=== PATIENT | male | born 1980 | race Caucasian/White ===

== ENCOUNTER 2019-01-31 05:36 | Inpatient (IN) | payer OTHER ==
[~2019-01-31] VITALS: Ht 182.9 cm; Wt 78.0 kg
[~2019-01-31 05:36] MED LIST: CARAS PO; DULO30CA45 PO; ESCI20TA PO; HYOS0.1297 PO; OMEP40CA6 PO; PANT40TA4 PO; PROP20TA4 PO; SPIR25TA PO; THIA50TA7 PO
[2019-01-31 08:00] VITALS: BP 122/65; PULSE 74; RESP 16
[2019-01-31 08:06] VITALS: Ht 182.9 cm; Wt 78.0 kg
[2019-01-31] MEDS ORDERED: NACL 0.9% 3 ML SYG IV SCH ×2 (09:30→14:30)
[2019-01-31] MEDS ORDERED: ACETAMINOPHEN 325 MG TAB PO PRN ×3 (09:30→20:30)
[2019-01-31] MEDS ORDERED: LORAZEPAM 2 MG INJ IV PRN ×4 (09:30→15:30)
[2019-01-31] MEDS: ONDANSETRON 4 MG INJ IV PRN ×2 (09:47→16:03)
[2019-01-31 14:00] VITALS: BP 114/68; PULSE 66; RESP 16
--- NOTE | 2019-01-31 14:52 | HP ---
Date/Time of Note Date/Time of Note DATE: 01/31/19 TIME: 14:37 Assessment/Plan VTE Prophylaxis SCD applied (from Nsg): Yes Pharmacological prophylaxis: NA/contraindicated Pharm contraindication: low risk/ambulating Lines/Catheters IV Catheter Type (from Nrsg): Saline Lock Urinary Cath still in place: No Assessment/Plan Hospital Course SUBJECTIVE: Having tremors on right hand. Vomited one time, nauseated. Having mild abdominal pain/discomfort mostly right-sided/lower abdomen. OBJECTIVE: Vital signs-see below PHYSICAL EXAM: Constitutional: Adequately built,not in acute distress. HEENT: Head atraumatic and normocephalic. Eyes: Extraocular muscles intact. Anicteric sclerae. Pupils equal bilaterally, reactive to light. NECK: Supple without lymph node. CHEST: Clear and good breath sounds equally. No wheezing. No rhonchi. HEART: S1, S2. Regular rate and rhythm. ABDOMEN: RUQ/Lower abdominal pain. Soft/ with no rebound tenderness. Bowel sounds were present. EXTREMITIES: No cyanosis, clubbing or edema. NEUROLOGIC: Alert and oriented x3. No focal deficit. No sensory deficit. PSYCHOSOCIAL: No signs of depression. INTEGUMENTARY: No open wounds. ASSESSMENT AND PLAN:38 yo M w/ EtOH abuse, advanced liver cirrhosis/portal hypertension/esophageal varices/TIPS placed, depressive disorders, homelessness, transferred from outside hospital with EtOH intoxication/DTs... EtOH intoxication/DTs -Start IV banana bag, IV fluids, withdrawal protocol with Librium/Ativan PRN -Cessation advised -weld lay out worker follow-up. Transaminitis elevation with hyperbilirubinemia -Outside hospital records also concerning for possible choledocholithiasis. Go ahead and obtain MRCP and consider GI evaluation inpatient. Cholelithiasis -We will have surgery review the case, most likely this can be addressed as outpatient Advanced liver cirrhosis/portal hypertension/esophageal varices/splenomegaly -Status post TIPS placed -Currently no hematemesis -Resume propranolol, Aldactone Thrombocytopenia, secondary to splenomegaly -Currently platelet stable at baseline. Will monitor. Depressive disorders -Resume home medications Nicotine abuse -Cessation advised. Nicotine patch Homelessness -weld lay out worker consultation. DVT prophylaxis: SCDs PUD prophylaxis: PPI Rest of the management depend on hospital course. Approximately 60 m spent on this history and physical. Patient is in collaboration with Dr. Boudreaux. HPI/ROS Admit Date/Time Admit Date/Time Jan 31, 2019 at 07:18 Hx of Present Illness This is a 38-year-old homeless male with a history of alcoholism, nicotine abuse, advanced alcoholic liver cirrhosis with portal hypertension/esophageal varices, status post TIPS, EGD with esophageal variceal ligation, cholelithiasis, depressive disorders, initially presented to [facility] with intractable nausea with nonbilious/nonbloody vomiting. Apparently, patient has been in 4 days of alcohol detoxification. He was also having generalized abdominal pain. He denied diarrhea, fevers, chills, constipation, hematemesis, hematochezia, melena, chest pain, palpitation, shortness of breath, numbness, tingling, dizziness, loss of consciousness or other constitutional symptoms. Initial vital signs stable. Outside hospital medical record shows unremarkable UA. CBC with white count 5300, hemoglobin 14.5, hematocrit 42.5, platelet 88,000, INR 1.4, PT 15.7, PTT 42 seconds, sodium 139, potassium 4.5, chloride 109, BUN 6, creatinine 1.05, total bilirubin 1.6, direct bilirubin 0.5, ALT 34, AST 41, alkaline phosphatase 74, lipase 293. Abdominal ultrasound showed cirrhotic liver with a transjugular intrahepatic portosystemic shunt, cholelithiasis with mild dilated common bile duct, right renal cyst with multiple nonobstructing right renal calculi. A CT abdomen and pelvis with IV contrast showed cirrhotic liver, patent TIPS, gallstones in the gallbladder, no evidence of cholecystitis, market splenomegaly, dilated veins in the splenic hilum region consistent with portal hypertension, benign right renal cyst, normal appendix, otherwise unremarkable contrast-enhanced CT scan of the abdomen and pelvis. Outside hospital emergency room course: Normal saline bolus, Pepcid IV, Reglan IV, ROS A 12 point review of system was assessed and is negative other than what is mentioned in the HPI. PMH/Family/Social Past Medical History See HPI Medications Current Medications IV Flush (NS 3 ml) 3 ml PER PROTOCOL IV ; Start 01/31/19 at 09:30 Lorazepam (Ativan) 1 mg Q10MIN PRN IV seizure; Start 01/31/19 at 09:30 Ondansetron HCl (Zofran Inj) 4 mg Q6H PRN IV NAUSEA/VOMITING Last administered on 7/31/19at 09:47; Admin Dose 4 MG; Start 01/31/19 at 09:30 Acetaminophen (Tylenol Tab) 650 mg Q6H PRN PO .PAIN 1-3 OR TEMP Last administered on 01/31/19at 09:43; Admin Dose 650 MG; Start 01/31/19 at 09:30 Pantoprazole (Protonix Tab) 40 mg DAILY@06 PO ; Start 02/01/19 at 06:00 Lorazepam (Ativan) 0.5 mg Q6H PRN IV anxiety; Start 01/31/19 at 09:30 Coded Allergies: chloroquine (Verified Allergy, Unknown, 01/31/19) Past Surgical History Noncontributory Social History Current every day smoker 10 cigarettes/day, EtOH abuse with last drink on 01/27. Smoking Status: Former smoker Exam/Review of Systems Vital Signs Vitals Vital Signs Date Temp Pulse Resp B/P (MAP) Pulse Ox O2 O2 Flow FiO2 Time Delivery Rate 01/31/19 98.2 74 16 122/65 99 08:00 (84) STEVE RODRIGUEZ V. HIDE SHAKER Jan 31, 2019 14:50
[2019-01-31] MEDS: DULOXETINE 30 MG CAP DR PO SCH (15:13)
[2019-01-31] MEDS: SOD CHLORIDE 0.9% 1,000 ML IV SCH ×2 (15:13→20:12)
[2019-01-31] MEDS ORDERED: MULTIVITAMINS 10 ML, THIAMINE 100 MG, FOLIC ACID 1 MG, MAGNESIUM SULFATE 2 GM in SOD CH... IV ONE (16:00)
[2019-01-31] MEDS: SUCRALFATE (100 MG/ML) 10ML CUP PO SCH ×2 (16:05→21:04)
--- NOTE | 2019-01-31 16:50 | CONS ---
Assessment/Plan Assessment/Plan Hospital Course (Demo Recall) Summary Assessment and Plan: Assessment: Right upper quadrant pain associated with nausea and vomiting Cholelithiasis-symptomatic versus acute cholecystitis Dilated common bile duct- r/o choledocholithiasis Alcoholic liver cirrhosis with sequela -Status post TIPS procedure March 2018 -Last EGD was April 2018- EV s/p banding Pancytopenia Hx of PUD Calledlast drink 3 to 4 days ago patient was in detox center Plan: MRCP rule out choledocholithiasis versus hepatocellular disease PPI/Carafate Clear liquid diet Further recommendations based on clinical course Patient seen in collaboration with Dr. Handy CC: TAMEKA HANDY MD ; Consultation Date/Type/Reason Admit Date/Time Jan 31, 2019 at 07:18 Date of Consultation: Jan 31, 2019 Type of Consult GI Reason for Consultation Mildly dilated common bile duct rule out choledocholithiasis Requesting Provider: STEVE RODRIGUEZ NP Date/Time of Note DATE: 01/31/19 TIME: 16:44 Hx of Present Illness This is a pleasant 38-year-old male with past medical history of liver cirrhosis status post TIPS procedure, esophageal varices status post banding, alcoholism drinking 1 gallon of liquor per day this last binge lasted 3 months who was recently admitted to a detox center he has been sober for the past 3 to 4 days however started to develop pain with persistent nausea resented to [facility] for further evaluation there and abdominal ultrasound showing cirrhotic liver with transjugular intrahepatic portosystemic shunt cholelithiasis with mildly dilated common bile duct and a renal cyst with multiple nonobstructing right renal calculi. Labs today were obtained showing total bili of 1.6, direct bili of 0.5, ALT of 34, AST 41, lipase of 293, PT 15.7 INR 1.4 stable patient was transferred to [facility] for insurance reasons. Here hematology revealed pancytopenia with WBC 3.7, hemoglobin 13.8, platelets 74, again patient with indirect hyperbilirubinemia and direct bilirubin is 1.7 patient with normal AST, ALT, alkaline Marty and lipase of 288. Concerns regarding ultrasound with mildly dilated common bile ducts and MRCP has been ordered to rule out choledocholithiasis GI has been consulted for further evaluation. Review of Systems: A 12 system, review was conducted and is negative except as noted in the HPI or here. Past Medical History Home Meds Reported Medications Omeprazole* (Omeprazole*) 40 Mg Capsule.dr, 40 MG PO DAILY, #30 CAP 01/31/19 Escitalopram Oxalate* (Lexapro*) 20 Mg Tablet, 20 MG PO DAILY, #30 TAB 01/31/19 Propranolol Hcl* (Propranolol Hcl*) 20 Mg Tablet, 20 MG PO BID, TAB 01/31/19 Spironolactone* (Aldactone*) 25 Mg Tablet, 25 MG PO DAILY, #30 TAB 01/31/19 Medications Current Medications Lorazepam (Ativan) 1 mg Q10MIN PRN IV seizure; Start 01/31/19 at 09:30 Ondansetron HCl (Zofran Inj) 4 mg Q6H PRN IV NAUSEA/VOMITING Last administered on 01/31/19at 16:03; Admin Dose 4 MG; Start 01/31/19 at 09:30 Sodium Chloride 1,000 ml @ 125 mls/hr Q8H IV Last administered on 01/31/19at 15:13; Admin Dose 125 MLS/HR; Start 01/31/19 at 14:13 IV Flush (NS 3 ml) 3 ml PER PROTOCOL IV ; Start 01/31/19 at 14:30 Pantoprazole (Protonix Iv) 40 mg 0600,1800 IV ; Start 01/31/19 at 18:00 Multivitamins 10 ml/Thiamine HCl 100 mg/Folic Acid 1 mg/Magnesium Sulfate 2 gm/ Sodium Chloride 1,000 ml @ 500 mls/hr Q2H ONCE IV ; Start 01/31/19 at 16:00; Stop 01/31/19 at 17:59 Chlordiazepoxide (Librium) 75 mg TID PO ; Start 01/31/19 at 21:00 Duloxetine HCl (Cymbalta) 60 mg DAILY PO Last administered on 01/31/19at 15:13; Admin Dose 60 MG; Start 01/31/19 at 14:30 Propranolol HCl (Inderal) 20 mg BID PO ; Start 01/31/19 at 21:00 Spironolactone (Aldactone) 25 mg DAILY PO ; Start 02/01/19 at 09:00 Sucralfate (Carafate Susp) 1 gm QID PO Last administered on 01/31/19at 16:05; Admin Dose 1 GM; Start 01/31/19 at 17:00 Multivitamins 10 ml/Thiamine HCl 100 mg/Folic Acid 1 mg/Sodium Chloride 1,011.2 ml @ 125 mls/ hr DAILY@09 IVPB ; Start 02/01/19 at 09:00 Lorazepam (Ativan) 1 mg Q2H PRN IV agitation/withdrawl; Start 01/31/19 at 15:30 Morphine Sulfate (morphine) 1 mg Q4H PRN IV SEVERE PAIN LEVEL 7-10; Start 01/31/19 at 15:30 Acetaminophen (Tylenol Tab) 325 mg Q6H PRN PO .PAIN 1-3 OR TEMP; Start 01/31/19 at 20:30 Metoclopramide HCl (Reglan) 10 mg Q6 IV ; Start 01/31/19 at 18:00; Stop 02/01/19 at 12:01 Allergies: Coded Allergies: chloroquine (Verified Allergy, Unknown, 01/31/19) Social History Smoking Status: Former smoker Exam/Review of Systems Exam Vitals Vital Signs Date Temp Pulse Resp B/P (MAP) Pulse Ox O2 O2 Flow FiO2 Time Delivery Rate 01/31/19 98.0 66 16 114/68 98 14:00 (83) Exam PHYSICAL EXAMINATION: GENERAL: Alert & oriented x 3, in no acute distress SKIN: No lesions HEAD: Normocephalic, atraumatic, no tenderness. EYES: Pupils equal reactive to light and accommodation, no discharge. EARS/NOSE AND THROAT: Ears normal NECK: Supple, no masses, CHEST: Inspection within normal limits. CARDIOVASCULAR: Heart: Regular rate and rhythm RESPIRATORY: Lungs clear to auscultation and percussion, no wheezing, no rubs GASTROINTESTINAL AND LIVER: Abdomen: Soft, non tenderness, non-distended, no guarding, no rebound tenderness, normoactive bowel sounds. Rectal: Deferred. EXTREMITIES: No cyanosis, clubbing or edema. Results Result Diagram: 01/31/19 1439 01/31/19 1439 Results 24hrs Laboratory Tests Test 01/31/19 14:39 White Blood Count 3.7 L Red Blood Count 4.47 L Hemoglobin 13.8 L Hematocrit 39.9 L Mean Corpuscular Volume 89.3 Mean Corpuscular Hemoglobin 30.9 Mean Corpuscular Hemoglobin Concent 34.6 Red Cell Distribution Width 17.4 H Platelet Count 74 L Mean Platelet Volume 10.4 Immature Granulocytes % 0.300 Neutrophils % 63.3 Lymphocytes % 21.0 Monocytes % 9.4 Eosinophils % 4.9 Basophils % 1.1 Nucleated Red Blood Cells % 0.0 Immature Granulocytes # 0.010 Neutrophils # 2.4 Lymphocytes # 0.8 Monocytes # 0.4 Eosinophils # 0.2 Basophils # 0.0 Nucleated Red Blood Cells # 0.0 Sodium Level 140 Potassium Level 4.3 Chloride Level 108 Carbon Dioxide Level 26 Anion Gap 6 Blood Urea Nitrogen 8 Creatinine 1.14 Est Glomerular Filtrat Rate mL/min > 60 Glucose Level 78 Calcium Level 8.4 Total Bilirubin 1.7 H Direct Bilirubin 0.00 Indirect Bilirubin 1.7 H Aspartate Amino Transf (AST/SGOT) 38 Alanine Aminotransferase (ALT/SGPT) 43 Alkaline Phosphatase 62 Total Protein 5.9 L Albumin 3.3 Globulin 2.60 Albumin/Globulin Ratio 1.26 Lipase 288 Medications Medication Current Medications Lorazepam (Ativan) 1 mg Q10MIN PRN IV seizure; Start 01/31/19 at 09:30 Ondansetron HCl (Zofran Inj) 4 mg Q6H PRN IV NAUSEA/VOMITING Last administered on 01/31/19at 16:03; Admin Dose 4 MG; Start 01/31/19 at 09:30 Sodium Chloride 1,000 ml @ 125 mls/hr Q8H IV Last administered on 01/31/19at 15:13; Admin Dose 125 MLS/HR; Start 01/31/19 at 14:13 IV Flush (NS 3 ml) 3 ml PER PROTOCOL IV ; Start 01/31/19 at 14:30 Pantoprazole (Protonix Iv) 40 mg 0600,1800 IV ; Start 01/31/19 at 18:00 Multivitamins 10 ml/Thiamine HCl 100 mg/Folic Acid 1 mg/Magnesium Sulfate 2 gm/ Sodium Chloride 1,000 ml @ 500 mls/hr Q2H ONCE IV ; Start 01/31/19 at 16:00; Stop 01/31/19 at 17:59 Chlordiazepoxide (Librium) 75 mg TID PO ; Start 01/31/19 at 21:00 Duloxetine HCl (Cymbalta) 60 mg DAILY PO Last administered on 01/31/19at 15:13; Admin Dose 60 MG; Start 01/31/19 at 14:30 Propranolol HCl (Inderal) 20 mg BID PO ; Start 01/31/19 at 21:00 Spironolactone (Aldactone) 25 mg DAILY PO ; Start 02/01/19 at 09:00 Sucralfate (Carafate Susp) 1 gm QID PO Last administered on 01/31/19at 16:05; Admin Dose 1 GM; Start 01/31/19 at 17:00 Multivitamins 10 ml/Thiamine HCl 100 mg/Folic Acid 1 mg/Sodium Chloride 1,011.2 ml @ 125 mls/ hr DAILY@09 IVPB ; Start 02/01/19 at 09:00 Lorazepam (Ativan) 1 mg Q2H PRN IV agitation/withdrawl; Start 01/31/19 at 15:30 Morphine Sulfate (morphine) 1 mg Q4H PRN IV SEVERE PAIN LEVEL 7-10; Start 01/31/19 at 15:30 Acetaminophen (Tylenol Tab) 325 mg Q6H PRN PO .PAIN 1-3 OR TEMP; Start 01/31/19 at 20:30 Metoclopramide HCl (Reglan) 10 mg Q6 IV ; Start 01/31/19 at 18:00; Stop 02/01/19 at 12:01 SCOTTY AGUDELO Jan 31, 2019 16:50
[2019-01-31] MEDS: PANTOPRAZOLE 40 MG INJ IV SCH (17:18)
[2019-01-31] MEDS: morphine 2 MG INJ IV PRN ×2 (17:30→22:15)
[2019-01-31] MEDS: METOCLOPRAMIDE 10 MG INJ IV SCH (18:37)
--- NOTE | 2019-01-31 18:37 | CONS ---
Assessment/Plan Assessment/Plan Hospital Course (Demo Recall) 1. Cholelithiasis without evidence of cholecystitis, with concern for choledocholithiasis: -MRCP> pending 2.Alcoholic liver cirrhosis status post TIPS procedure -Will need hepatology follow-up 3. Pancytopenia: 2/2 Liver cirrhosis -Supportive 4. Alcohol abuse: Concern for detox -Medical management 5. Hyperbilirubinemia: -Trend -As above Thank you. Patient seen and examined in collaboration with Dr. Stevo Gage. Consultation Date/Type/Reason Admit Date/Time Jan 31, 2019 at 07:18 Date of Consultation: Jan 31, 2019 Type of Consult Surgical Reason for Consultation Cholelithiasis Requesting Provider: STEVE RODRIGUEZ NP Date/Time of Note DATE: 01/31/19 TIME: 18:24 Hx of Present Illness [place] is a 38-year-old man with a history of alcoholism, nicotine abuse, advanced alcoholic liver cirrhosis with portal hypertension/esophageal varices, status post TIPS, EGD with esophageal variceal ligation, cholelithiasis, dep ressive disorders who presented to outside hospital with intractable nausea and vomiting. Initially, patient thought he was experiencing detox symptoms since he has been in detox from alcohol x4 days. Associated symptoms include generalized abdominal pain with radiation to the back. No reports of fevers, chills, congested cough, chest pain, palpitations, hematemesis, hematochezia, melena, skin or scleral changes. Abdominal ultrasound shows cirrhotic liver with a transjugular intrahepatic portosystemic shunt, cholelithiasis with mildly dilated common bile duct.Laboratory findings significant for mildly elevated bilirubin c as well as leukopenia and thrombocytopenia. General surgery was a sked to evaluate. 12 point review of systems was performed and is negative except for as stated in HPI Past Medical History As above Home Meds Reported Medications Omeprazole* (Omeprazole*) 40 Mg Capsule., 40 MG PO DAILY, #30 CAP 01/31/19 Escitalopram Oxalate* (Lexapro*) 20 Mg Tablet, 20 MG PO DAILY, #30 TAB 01/31/19 Propranolol Hcl* (Propranolol Hcl*) 20 Mg Tablet, 20 MG PO BID, TAB 01/31/19 Spironolactone* (Aldactone*) 25 Mg Tablet, 25 MG PO DAILY, #30 TAB 01/31/19 Medications Current Medications Lorazepam (Ativan) 1 mg Q10MIN PRN IV seizure; Start 01/31/19 at 09:30 Ondansetron HCl (Zofran Inj) 4 mg Q6H PRN IV NAUSEA/VOMITING Last administered on 01/31/19at 16:03; Admin Dose 4 MG; Start 01/31/19 at 09:30 Sodium Chloride 1,000 ml @ 125 mls/hr Q8H IV Last administered on 01/31/19at 15:13; Admin Dose 125 MLS/HR; Start 01/31/19 at 14:13 IV Flush (NS 3 ml) 3 ml PER PROTOCOL IV ; Start 01/31/19 at 14:30 Pantoprazole (Protonix Iv) 40 mg 0600,1800 IV Last administered on 01/31/19at 17:18; Admin Dose 40 MG; Start 01/31/19 at 18:00 Chlordiazepoxide (Librium) 75 mg TID PO ; Start 01/31/19 at 21:00 Duloxetine HCl (Cymbalta) 60 mg DAILY PO Last administered on 01/31/19at 15:13; Admin Dose 60 MG; Start 01/31/19 at 14:30 Propranolol HCl (Inderal) 20 mg BID PO ; Start 01/31/19 at 21:00 Spironolactone (Aldactone) 25 mg DAILY PO ; Start 02/01/19 at 09:00 Sucralfate (Carafate Susp) 1 gm QID PO Last administered on 01/31/19at 16:05; Admin Dose 1 GM; Start 01/31/19 at 17:00 Multivitamins 10 ml/Thiamine HCl 100 mg/Folic Acid 1 mg/Sodium Chloride 1,011.2 ml @ 125 mls/ hr DAILY@09 IVPB ; Start 02/01/19 at 09:00 Lorazepam (Ativan) 1 mg Q2H PRN IV agitation/withdrawl; Start 01/31/19 at 15:30 Morphine Sulfate (morphine) 1 mg Q4H PRN IV SEVERE PAIN LEVEL 7-10 Last administered on 01/31/19at 17:30; Admin Dose 1 MG; Start 01/31/19 at 15:30 Acetaminophen (Tylenol Tab) 325 mg Q6H PRN PO .PAIN 1-3 OR TEMP; Start 01/31/19 at 20:30 Metoclopramide HCl (Reglan) 10 mg Q6 IV ; Start 01/31/19 at 18:00; Stop 02/01/19 at 12:01 Allergies: Coded Allergies: chloroquine (Verified Allergy, Unknown, 01/31/19) Past Surgical History As above Family History Significant Family History: no pertinent family hx Social History Alcohol Use: heavy Smoking Status: Former smoker Drug Use: none Exam/Review of Systems Exam Vitals Vital Signs Date Temp Pulse Resp B/P (MAP) Pulse Ox O2 O2 Flow FiO2 Time Delivery Rate 01/31/19 98.0 66 16 114/68 98 14:00 (83) Constitutional: alert, oriented Psych: nl mood/affect; No anxiety Head: normocephalic, atraumatic Eyes: nl conjunctiva, EOMI, nl lids, nl sclera ENMT: nl external ears & nose, nl lips & teeth, mucosa pink and moist Neck: supple, non-tender; No jvd Respiratory: normal air movement; No congested cough Cardiovascular: regular rate and rhythm, nl pulses Gastrointestinal: soft, tender (Right upper quadrant, midepigastric); No distended Musculoskeletal: nl extremities to inspection, nl gait and stance Extremities: normal pulses Neurological: nl mental status, nl speech, nl strength Skin: nl turgor; No rash or lesions Results Result Diagram: 01/31/19 1439 01/31/19 1439 Results 24hrs Laboratory Tests Test 01/31/19 14:39 White Blood Count 3.7 L Red Blood Count 4.47 L Hemoglobin 13.8 L Hematocrit 39.9 L Mean Corpuscular Volume 89.3 Mean Corpuscular Hemoglobin 30.9 Mean Corpuscular Hemoglobin Concent 34.6 Red Cell Distribution Width 17.4 H Platelet Count 74 L Mean Platelet Volume 10.4 Immature Granulocytes % 0.300 Neutrophils % 63.3 Lymphocytes % 21.0 Monocytes % 9.4 Eosinophils % 4.9 Basophils % 1.1 Nucleated Red Blood Cells % 0.0 Immature Granulocytes # 0.010 Neutrophils # 2.4 Lymphocytes # 0.8 Monocytes # 0.4 Eosinophils # 0.2 Basophils # 0.0 Nucleated Red Blood Cells # 0.0 Sodium Level 140 Potassium Level 4.3 Chloride Level 108 Carbon Dioxide Level 26 Anion Gap 6 Blood Urea Nitrogen 8 Creatinine 1.14 Est Glomerular Filtrat Rate mL/min > 60 Glucose Level 78 Calcium Level 8.4 Total Bilirubin 1.7 H Direct Bilirubin 0.00 Indirect Bilirubin 1.7 H Aspartate Amino Transf (AST/SGOT) 38 Alanine Aminotransferase (ALT/SGPT) 43 Alkaline Phosphatase 62 Total Protein 5.9 L Albumin 3.3 Globulin 2.60 Albumin/Globulin Ratio 1.26 Lipase 288 Medications Medication Current Medications Lorazepam (Ativan) 1 mg Q10MIN PRN IV seizure; Start 01/31/19 at 09:30 Ondansetron HCl (Zofran Inj) 4 mg Q6H PRN IV NAUSEA/VOMITING Last administered on 01/31/19at 16:03; Admin Dose 4 MG; Start 01/31/19 at 09:30 Sodium Chloride 1,000 ml @ 125 mls/hr Q8H IV Last administered on 01/31/19at 15:13; Admin Dose 125 MLS/HR; Start 01/31/19 at 14:13 IV Flush (NS 3 ml) 3 ml PER PROTOCOL IV ; Start 01/31/19 at 14:30 Pantoprazole (Protonix Iv) 40 mg 0600,1800 IV Last administered on 01/31/19at 1 7:18; Admin Dose 40 MG; Start 01/31/19 at 18:00 Chlordiazepoxide (Librium) 75 mg TID PO ; Start 01/31/19 at 21:00 Duloxetine HCl (Cymbalta) 60 mg DAILY PO Last administered on 01/31/19at 15:13; Admin Dose 60 MG; Start 01/31/19 at 14:30 Propranolol HCl (Inderal) 20 mg BID PO ; Start 01/31/19 at 21:00 Spironolactone (Aldactone) 25 mg DAILY PO ; Start 02/01/19 at 09:00 Sucralfate (Carafate Susp) 1 gm QID PO Last administered on 01/31/19at 16:05; Admin Dose 1 GM; Start 01/31/19 at 17:00 Multivitamins 10 ml/Thiamine HCl 100 mg/Folic Acid 1 mg/Sodium Chloride 1,011.2 ml @ 125 mls/ hr DAILY@09 IVPB ; Start 02/01/19 at 09:00 Lorazepam (Ativan) 1 mg Q2H PRN IV agitation/withdrawl; Start 01/31/19 at 15:30 Morphine Sulfate (morphine) 1 mg Q4H PRN IV SEVERE PAIN LEVEL 7-10 Last administered on 01/31/19at 17:30; Admin Dose 1 MG; Start 01/31/19 at 15:30 Acetaminophen (Tylenol Tab) 325 mg Q6H PRN PO .PAIN 1-3 OR TEMP; Start 01/31/19 at 20:30 Metoclopramide HCl (Reglan) 10 mg Q6 IV ; Start 01/31/19 at 18:00; Stop 02/01/19 at 12:01 RICHARD CHUN NP Jan 31, 2019 18:37
[2019-01-31 20:05] VITALS: BP 126/82; PULSE 68; RESP 18
[2019-01-31] MEDS: PROPRANOLOL 20 MG TAB PO SCH (21:03)
[2019-01-31] MEDS: CHLORDIAZEPOXIDE 25 MG CAP PO SCH (21:04)
[2019-02-01] MEDS: METOCLOPRAMIDE 10 MG INJ IV SCH ×3 (01:57→12:02)
[2019-02-01 02:05] VITALS: BP 118/73; PULSE 60; RESP 18
[2019-02-01] MEDS: morphine 2 MG INJ IV PRN ×5 (02:22→21:05)
[2019-02-01] MEDS ORDERED: PANTOPRAZOLE (EC) 40 MG TAB PO SCH (06:00)
[2019-02-01] MEDS: PANTOPRAZOLE 40 MG INJ IV SCH ×2 (06:14→17:15)
[2019-02-01] MEDS: SOD CHLORIDE 0.9% 1,000 ML IV SCH ×3 (06:15→22:13)
[2019-02-01 08:23] VITALS: BP 117/74; PULSE 65; RESP 18
[2019-02-01] MEDS: PROPRANOLOL 20 MG TAB PO SCH ×2 (09:08→21:00)
[2019-02-01] MEDS: SUCRALFATE (100 MG/ML) 10ML CUP PO SCH ×4 (09:08→21:01)
[2019-02-01] MEDS: DULOXETINE 30 MG CAP DR PO SCH (09:08)
[2019-02-01] MEDS: SPIRONOLACTONE 25 MG TAB PO SCH (09:08)
[2019-02-01] MEDS: CHLORDIAZEPOXIDE 25 MG CAP PO SCH ×3 (09:09→21:00)
[2019-02-01] MEDS: MULTIVITAMINS 10 ML, THIAMINE 100 MG, FOLIC ACID 1 MG in SOD CHLORIDE 0.9% 1,000 ML IVPB SCH (09:15)
--- NOTE | 2019-02-01 10:01 | PN ---
Date/Time of Note Date/Time of Note DATE: 02/01/19 TIME: 09:59 Assessment/Plan VTE Prophylaxis Risk score (from Ns)>0 risk: 1 SCD applied (from Ns): Yes Pharmacological prophylaxis: NA/contraindicated Pharm contraindication: liver dx Lines/Catheters [facility] Saline Lock Urinary Cath still in place: No Assessment/Plan Hospital Course Summary Assessment and Plan: Assessment: Right upper quadrant pain associated with nausea and vomiting Cholelithiasis -Symptomatic versus acute cholecystitis Dilated common bile duct - R/o choledocholithiasis Indirect hyperbilirubinemia Alcoholic liver cirrhosis with sequela -Status post TIPS procedure March 2018 -Last EGD was April 2018- EV s/p banding Pancytopenia Hx of PUD Calledlast drink 3 to 4 days ago patient was in detox center Plan: MRCP rule out choledocholithiasis versus hepatocellular disease- currently pending PPI/Carafate Clear liquid diet Further recommendations based on clinical course Patient seen in collaboration with Dr. Handy Subjective: Course reviewed with nursing staff Patient interviewed and examined All labs, imaging and other results reviewed The patient resting in bed, c/o progressive RUQ pain with radiation to his back with nausea MRCP is pending. No over night events, awaiting MRCP. Exam PHYSICAL EXAMINATION: GENERAL: Alert & oriented x 3, in no acute distress SKIN: No lesions HEAD: Normocephalic, atraumatic, no tenderness. EYES: Pupils equal reactive to light and accommodation, no discharge. EARS/NOSE AND THROAT: Ears normal NECK: Supple, no masses, CHEST: Inspection within normal limits. CARDIOVASCULAR: Heart: Regular rate and rhythm RESPIRATORY: Lungs clear to auscultation and percussion, no wheezing, no rubs GASTROINTESTINAL AND LIVER: Abdomen: Soft, non tenderness, non-distended, no guarding, no rebound tenderness, normoactive bowel sounds. Rectal: Deferred. EXTREMITIES: No cyanosis, clubbing or edema. Result Diagram: 02/01/1952302/01/19 0524 Results 24hrs Laboratory Tests Test 01/31/19 14:39 02/01/19 05:24 White Blood Count 3.7 L 2.8 #L Red Blood Count 4.47 L 4.46 L Hemoglobin 13.8 L 13.6 L Hematocrit 39.9 L 40.5 L Mean Corpuscular Volume 89.3 90.8 Mean Corpuscular Hemoglobin 30.9 30.5 Mean Corpuscular Hemoglobin Concent 34.6 33.6 Red Cell Distribution Width 17.4 H 17.3 H Platelet Count 74 L 64 L Mean Platelet Volume 10.4 10.9 H Immature Granulocytes % 0.300 0.700 H Neutrophils % 63.3 60.4 Lymphocytes % 21.0 23.2 Monocytes % 9.4 8.6 Eosinophils % 4.9 6.4 Basophils % 1.1 0.7 Nucleated Red Blood Cells % 0.0 0.0 Immature Granulocytes # 0.010 0.020 Neutrophils # 2.4 1.7 Lymphocytes # 0.8 0.7 L Monocytes # 0.4 0.2 L Eosinophils # 0.2 0.2 Basophils # 0.0 0.0 Nucleated Red Blood Cells # 0.0 0.0 Sodium Level 140 141 Potassium Level 4.3 4.8 Chloride Level 108 109 Carbon Dioxide Level 26 28 Anion Gap 6 4 L Blood Urea Nitrogen 8 9 Creatinine 1.14 1.09 Est Glomerular Filtrat Rate mL/min > 60 > 60 Glucose Level 78 78 Calcium Level 8.4 7.8 L Total Bilirubin 1.7 H 1.8 H Direct Bilirubin 0.00 0.00 Indirect Bilirubin 1.7 H 1.8 H Aspartate Amino Transf (AST/SGOT) 38 33 Alanine Aminotransferase (ALT/SGPT) 43 37 Alkaline Phosphatase 62 61 Total Protein 5.9 L 5.4 L Albumin 3.3 2.8 L Globulin 2.60 2.60 Albumin/Globulin Ratio 1.26 1.07 Lipase 288 Phosphorus Level 3.7 Magnesium Level 2.0 Ammonia 19 Exam/Review of Systems Exam Vitals Vital Signs Date Temp Pulse Resp B/P (MAP) Pulse Ox O2 O2 Flow FiO2 Time Delivery Rate 02/01/19 98.2 65 18 117/74 96 Room Air 08:23 (88) Intake and Output 01/31/19 01/31/19 02/01/19 1515:00 23:00 07:00 IntakeIntake Total 1970 ml 1000 ml BalanceBalance 1970 ml 1000 ml Results Results 24hrs Laboratory Tests Test 01/31/19 14:39 02/01/19 05:24 White Blood Count 3.7 L 2.8 #L Red Blood Count 4.47 L 4.46 L Hemoglobin 13.8 L 13.6 L Hematocrit 39.9 L 40.5 L Mean Corpuscular Volume 89.3 90.8 Mean Corpuscular Hemoglobin 30.9 30.5 Mean Corpuscular Hemoglobin Concent 34.6 33.6 Red Cell Distribution Width 17.4 H 17.3 H Platelet Count 74 L 64 L Mean Platelet Volume 10.4 10.9 H Immature Granulocytes % 0.300 0.700 H Neutrophils % 63.3 60.4 Lymphocytes % 21.0 23.2 Monocytes % 9.4 8.6 Eosinophils % 4.9 6.4 Basophils % 1.1 0.7 Nucleated Red Blood Cells % 0.0 0.0 Immature Granulocytes # 0.010 0.020 Neutrophils # 2.4 1.7 Lymphocytes # 0.8 0.7 L Monocytes # 0.4 0.2 L Eosinophils # 0.2 0.2 Basophils # 0.0 0.0 Nucleated Red Blood Cells # 0.0 0.0 Sodium Level 140 141 Potassium Level 4.3 4.8 Chloride Level 108 109 Carbon Dioxide Level 26 28 Anion Gap 6 4 L Blood Urea Nitrogen 8 9 Creatinine 1.14 1.09 Est Glomerular Filtrat Rate mL/min > 60 > 60 Glucose Level 78 78 Calcium Level 8.4 7.8 L Total Bilirubin 1.7 H 1.8 H Direct Bilirubin 0.00 0.00 Indirect Bilirubin 1.7 H 1.8 H Aspartate Amino Transf (AST/SGOT) 38 33 Alanine Aminotransferase (ALT/SGPT) 43 37 Alkaline Phosphatase 62 61 Total Protein 5.9 L 5.4 L Albumin 3.3 2.8 L Globulin 2.60 2.60 Albumin/Globulin Ratio 1.26 1.07 Lipase 288 Phosphorus Level 3.7 Magnesium Level 2.0 Ammonia 19 Medications Medication Current Medications Lorazepam (Ativan) 1 mg Q10MIN PRN IV seizure; Start 01/31/19 at 09:30 Ondansetron HCl (Zofran Inj) 4 mg Q6H PRN IV NAUSEA/VOMITING Last administered on 01/31/19at 16:03; Admin Dose 4 MG; Start 01/31/19 at 09:30 Sodium Chloride 1,000 ml @ 125 mls/hr Q8H IV Last administered on 02/01/19at 06 :15; Admin Dose 125 MLS/HR; Start 01/31/19 at 14:13 IV Flush (NS 3 ml) 3 ml PER PROTOCOL IV ; Start 01/31/19 at 14:30 Pantoprazole (Protonix Iv) 40 mg 0600,1800 IV Last administered on 02/01/19 06:14; Admin Dose 40 MG; Start 01/31/19 at 18:00 Chlordiazepoxide (Librium) 75 mg TID PO Last administered on 02/01/19 09:09; Admin Dose 75 MG; Start 01/31/19 at 21:00 Duloxetine HCl (Cymbalta) 60 mg DAILY PO Last administered on 02/01/19 09:08; Admin Dose 60 MG; Start 01/31/19 at 14:30 Propranolol HCl (Inderal) 20 mg BID PO Last administered on 02/01/19 09:08; Admin Dose 20 MG; Start 01/31/19 at 21:00 Spironolactone (Aldactone) 25 mg DAILY PO Last administered on 02/01/19 09:08; Admin Dose 25 MG; Start 02/01/19 at 09:00 Sucralfate (Carafate Susp) 1 gm QID PO Last administered on 02/01/19at 09:08; Admin Dose 1 GM; Start 01/31/19 at 17:00 Multivitamins 10 ml/Thiamine HCl 100 mg/Folic Acid 1 mg/Sodium Chloride 1,011.2 ml @ 125 mls/ hr DAILY@09 IVPB Last administered on 02/01/19at 09:15; Admin Dose 125 MLS/HR; Start 02/01/19 at 09:00 Lorazepam (Ativan) 1 mg Q2H PRN IV agitation/withdrawl; Start 01/31/19 at 15:30 Morphine Sulfate (morphine) 1 mg Q4H PRN IV SEVERE PAIN LEVEL 7-10 Last adminis tered on 02/01/19at 06:22; Admin Dose 1 MG; Start 01/31/19 at 15:30 Acetaminophen (Tylenol Tab) 325 mg Q6H PRN PO .PAIN 1-3 OR TEMP; Start 01/31/19 at 20:30 Metoclopramide HCl (Reglan) 10 mg Q6 IV Last administered on 02/01/19 06:14; Admin Dose 10 MG; Start 01/31/19 at 18:00; Stop 02/01/19 at 12:01 SCOTTY AGUDELO Feb 01, 2019 10:01
--- NOTE | 2019-02-01 10:36 | PN ---
Date/Time of Note Date/Time of Note DATE: 02/01/19 TIME: 10:34 Assessment/Plan Lines/Catheters IV Catheter Type (from [facility]): Saline Lock L[address]pez in Place (from [facility]): No Assessment/Plan Chief Complaint/Hosp Course 1. Cholelithiasis without evidence of cholecystitis, with concern for choledocholithiasis: -MRCP> still pending 2.Alcoholic liver cirrhosis status post TIPS procedure -Will need hepatology follow-up 3. Pancytopenia: 2/2 Liver cirrhosis -Supportive 4. Alcohol abuse: Concern for detox -Medical management 5. Hyperbilirubinemia: -Trend -As above Thank you. Patient seen and examined in collaboration with Dr. Stevo Gage. Subjective 24 Hr Interval Summary Feels well. Some abdominal pain and back pain. Some nausea. No fevers, chills, sob, congested cough, cp, palpitations, russell, dizziness, vomiting, diarrhea, dysuria. Exam/Review of Systems Vital Signs Vitals Vital Signs Date Temp Pulse Resp B/P (MAP) Pulse Ox O2 O2 Flow FiO2 Time Delivery Rate 02/01/19 98.2 65 18 117/74 96 Room Air 08:23 (88) Intake and Output 01/31/19 01/31/19 02/01/19 1515:00 23:00 07:00 IntakeIntake Total 1970 ml 1000 ml BalanceBalance 1970 ml 1000 ml Exam Free Text/Dictation Constitutional: alert, oriented Psych: nl mood/affect; No anxiety Head: normocephalic, atraumatic Eyes: nl conjunctiva, EOMI, nl lids, nl sclera ENMT: nl external ears & nose, nl lips & teeth, mucosa pink and moist Neck: supple, non-tender; No jvd Respiratory: normal air movement; No congested cough Cardiovascular: regular rate and rhythm, nl pulses Gastrointestinal: soft, tender (Right upper quadrant, midepigastric); No distended Musculoskeletal: nl extremities to inspection, nl gait and stance Extremities: normal pulses Neurological: nl mental status, nl speech, nl strength Skin: nl turgor; No rash or lesions Results Result Diagram: 02/01/1924 02/01/19 0524 RICHARD CHUN NP Feb 01, 2019 10:36
--- NOTE | 2019-02-01 12:34 | PN ---
Date/Time of Note Date/Time of Note DATE: 02/01/19 TIME: 12:31 Assessment/Plan VTE Prophylaxis Risk score (from Ns)>0 risk: 1 SCD applied (from Ns): Yes Pharmacological prophylaxis: NA/contraindicated Pharm contraindication: low risk/ambulating Lines/Catheters IV C[facility]ter Type (from [facility]): Peripheral IV Urinary Cath still in place: No Assessment/Plan Hospital Course SUBJECTIVE:no acute episodes. OBJECTIVE: Vital signs-see below PHYSICAL EXAM: Constitutional: Adequately built,not in acute distress. HEENT: Head atraumatic and normocephalic. Eyes: Extraocular muscles intact. Anicteric sclerae. Pupils equal bilaterally, reactive to light. NECK: Supple without lymph node. CHEST: Clear and good breath sounds equally. No wheezing. No rhonchi. HEART: S1, S2. Regular rate and rhythm. ABDOMEN: RUQ/Lower abdominal pain. Soft/ with no rebound tenderness. Bowel sounds were present. EXTREMITIES: No cyanosis, clubbing or edema.No tremors. NEUROLOGIC: Alert and oriented x3. No focal deficit. No sensory deficit. PSYCHOSOCIAL: No signs of depression. INTEGUMENTARY: No open wounds. ASSESSMENT AND PLAN:38 yo M w/ EtOH abuse, advanced liver cirrhosis/portal h ypertension/esophageal varices/TIPS placed, depressive disorders, homelessness, transferred from outside hospital with EtOH intoxication/DTs... EtOH intoxication/DTs -cont.IV banana bag, IV fluids, Librium/Ativan PRN -Cessation advised -seafood process worker follow-up. Transaminitis elevation with hyperbilirubinemia -Outside hospital records also concerning for possible choledocholithiasis. f/u pending MRCP and GI recs Cholelithiasis -f/u surgical recs- most likely this can be addressed as outpatient Advanced liver cirrhosis/portal hypertension/esophageal varices/splenomegaly -Status post TIPS placed -Currently no hematemesis -on propranolol, Aldactone Thrombocytopenia, secondary to splenomegaly -Currently platelet stable at baseline. -monitor. Depressive disorders -cont home medications Nicotine abuse -Cessation advised. Nicotine patch Homelessness -seafood process worker consultation. DVT prophylaxis: SCDs PUD prophylaxis: PPI Dispo:f/u mrcp.cont.withdrawal protocol, Patient is in collaboration with Dr. Boudreaux. Result Diagram: 8/1/19 0524 8/1/19 0524 Results 24hrs Laboratory Tests Test 01/31/19 14:39 02/01/19 05:24 White Blood Count 3.7 L 2.8 #L Red Blood Count 4.47 L 4.46 L Hemoglobin 13.8 L 13.6 L Hematocrit 39.9 L 40.5 L Mean Corpuscular Volume 89.3 90.8 Mean Corpuscular Hemoglobin 30.9 30.5 Mean Corpuscular Hemoglobin Concent 34.6 33.6 Red Cell Distribution Width 17.4 H 17.3 H Platelet Count 74 L 64 L Mean Platelet Volume 10.4 10.9 H Immature Granulocytes % 0.300 0.700 H Neutrophils % 63.3 60.4 Lymphocytes % 21.0 23.2 Monocytes % 9.4 8.6 Eosinophils % 4.9 6.4 Basophils % 1.1 0.7 Nucleated Red Blood Cells % 0.0 0.0 Immature Granulocytes # 0.010 0.020 Neutrophils # 2.4 1.7 Lymphocytes # 0.8 0.7 L Monocytes # 0.4 0.2 L Eosinophils # 0.2 0.2 Basophils # 0.0 0.0 Nucleated Red Blood Cells # 0.0 0.0 Sodium Level 140 141 Potassium Level 4.3 4.8 Chloride Level 108 109 Carbon Dioxide Level 26 28 Anion Gap 6 4 L Blood Urea Nitrogen 8 9 Creatinine 1.14 1.09 Est Glomerular Filtrat Rate mL/min > 60 > 60 Glucose Level 78 78 Calcium Level 8.4 7.8 L Total Bilirubin 1.7 H 1.8 H Direct Bilirubin 0.00 0.00 Indirect Bilirubin 1.7 H 1.8 H Aspartate Amino Transf (AST/SGOT) 38 33 Alanine Aminotransferase (ALT/SGPT) 43 37 Alkaline Phosphatase 62 61 Total Protein 5.9 L 5.4 L Albumin 3.3 2.8 L Globulin 2.60 2.60 Albumin/Globulin Ratio 1.26 1.07 Lipase 288 Phosphorus Level 3.7 Magnesium Level 2.0 Ammonia 19 Exam/Review of Systems Exam Vitals Vital Signs Date Temp Pulse Resp B/P (MAP) Pulse Ox O2 O2 Flow FiO2 Time Delivery Rate 02/01/19 98.2 65 18 117/74 96 Room Air 08:23 (88) Intake and Output 01/31/19 01/31/19 02/01/19 1515:00 23:00 07:00 IntakeIntake Total 1970 ml 1000 ml BalanceBalance 1970 ml 1000 ml Results Results 24hrs Laboratory Tests Test 01/31/19 14:39 02/01/19 05:24 White Blood Count 3.7 L 2.8 #L Red Blood Count 4.47 L 4.46 L Hemoglobin 13.8 L 13.6 L Hematocrit 39.9 L 40.5 L Mean Corpuscular Volume 89.3 90.8 Mean Corpuscular Hemoglobin 30.9 30.5 Mean Corpuscular Hemoglobin Concent 34.6 33.6 Red Cell Distribution Width 17.4 H 17.3 H Platelet Count 74 L 64 L Mean Platelet Volume 10.4 10.9 H Immature Granulocytes % 0.300 0.700 H Neutrophils % 63.3 60.4 Lymphocytes % 21.0 23.2 Monocytes % 9.4 8.6 Eosinophils % 4.9 6.4 Basophils % 1.1 0.7 Nucleated Red Blood Cells % 0.0 0.0 Immature Granulocytes # 0.010 0.020 Neutrophils # 2.4 1.7 Lymphocytes # 0.8 0.7 L Monocytes # 0.4 0.2 L Eosinophils # 0.2 0.2 Basophils # 0.0 0.0 Nucleated Red Blood Cells # 0.0 0.0 Sodium Level 140 141 Potassium Level 4.3 4.8 Chloride Level 108 109 Carbon Dioxide Level 26 28 Anion Gap 6 4 L Blood Urea Nitrogen 8 9 Creatinine 1.14 1.09 Est Glomerular Filtrat Rate mL/min > 60 > 60 Glucose Level 78 78 Calcium Level 8.4 7.8 L Total Bilirubin 1.7 H 1.8 H Direct Bilirubin 0.00 0.00 Indirect Bilirubin 1.7 H 1.8 H Aspartate Amino Transf (AST/SGOT) 38 33 Alanine Aminotransferase (ALT/SGPT) 43 37 Alkaline Phosphatase 62 61 Total Protein 5.9 L 5.4 L Albumin 3.3 2.8 L Globulin 2.60 2.60 Albumin/Globulin Ratio 1.26 1.07 Lipase 288 Phosphorus Level 3.7 Magnesium Level 2.0 Ammonia 19 Medications Medication Current Medications Lorazepam (Ativan) 1 mg Q10MIN PRN IV seizure; Start 01/31/19 at 09:30 Ondansetron HCl (Zofran Inj) 4 mg Q6H PRN IV NAUSEA/VOMITING Last administered on 01/31/19at 16:03; Admin Dose 4 MG; Start 01/31/19 at 09:30 Sodium Chloride 1,000 ml @ 125 mls/hr Q8H IV Last administered on 02/01/19at 06:15; Admin Dose 125 MLS/HR; Start 01/31/19 at 14:13 IV Flush (NS 3 ml) 3 ml PER PROTOCOL IV ; Start 01/31/19 at 14:30 Pantoprazole (Protonix Iv) 40 mg 0600,1800 IV Last administered on 02/01/19at 06:14; Admin Dose 40 MG; Start 01/31/19 at 18:00 Chlordiazepoxide (Librium) 75 mg TID PO Last administered on 02/01/19at 09:09; Admin Dose 75 MG; Start 01/31/19 at 21:00 Duloxetine HCl (Cymbalta) 60 mg DAILY PO Last administered on 02/01/19 09:08; Admin Dose 60 MG; Start 01/31/19 at 14:30 Propranolol HCl (Inderal) 20 mg BID PO Last administered on 02/01/19at 09:08; Admin Dose 20 MG; Start 01/31/19 at 21:00 Spironolactone (Aldactone) 25 mg DAILY PO Last administered on 02/01/19at 09:08; Admin Dose 25 MG; Start 02/01/19 at 09:00 Sucralfate (Carafate Susp) 1 gm QID PO Last administered on 02/01/19 09:08; Admin Dose 1 GM; Start 01/31/19 at 17:00 Multivitamins 10 ml/Thiamine HCl 100 mg/Folic Acid 1 mg/Sodium Chloride 1,011.2 ml @ 125 mls/ hr DAILY@09 IVPB Last administered on 02/01/19at 09:15; Admin Dose 125 MLS/HR; Start 02/01/19 at 09:00 Lorazepam (Ativan) 1 mg Q2H PRN IV agitation/withdrawl; Start 01/31/19 at 15:30 Morphine Sulfate (morphine) 1 mg Q4H PRN IV SEVERE PAIN LEVEL 7-10 Last administered on 02/01/19at 12:02; Admin Dose 1 MG; Start 01/31/19 at 15:30 Acetaminophen (Tylenol Tab) 325 mg Q6H PRN PO .PAIN 1-3 OR TEMP; Start 01/31/19 at 20:30 STEVE RODRIGUEZ NP Feb 01, 2019 12:34
[2019-02-01 20:05] VITALS: BP 126/78; PULSE 73; RESP 18
[2019-02-02] MEDS: SOD CHLORIDE 0.9% 1,000 ML IV SCH (00:03)
[2019-02-02 02:05] VITALS: BP 102/60; PULSE 68; RESP 18
[2019-02-02] MEDS: morphine 2 MG INJ IV PRN ×5 (03:29→21:29)
[2019-02-02] MEDS: PANTOPRAZOLE 40 MG INJ IV SCH ×2 (05:44→17:58)
[2019-02-02 08:00] VITALS: BP 109/72; PULSE 72; RESP 12
[2019-02-02] MEDS: DULOXETINE 30 MG CAP DR PO SCH (08:19)
[2019-02-02] MEDS: SUCRALFATE (100 MG/ML) 10ML CUP PO SCH ×4 (08:20→21:31)
[2019-02-02] MEDS: CHLORDIAZEPOXIDE 25 MG CAP PO SCH ×4 (08:20→21:31)
[2019-02-02] MEDS: SPIRONOLACTONE 25 MG TAB PO SCH (08:31)
[2019-02-02] MEDS: MULTIVITAMINS 10 ML, THIAMINE 100 MG, FOLIC ACID 1 MG in SOD CHLORIDE 0.9% 1,000 ML IVPB SCH (08:33)
[2019-02-02] MEDS: PROPRANOLOL 20 MG TAB PO SCH ×2 (09:00→21:31)
--- NOTE | 2019-02-02 12:49 | PN ---
Date/Time of Note Date/Time of Note DATE: 02/02/19 TIME: 12:46 Assessment/Plan VTE Prophylaxis Risk score (from Nsg)>0 risk: 1 SCD applied (from Ns): Yes Pharmacological prophylaxis: NA/contraindicated Pharm contraindication: low risk/ambulating Lines/Catheters IV C[facility]ter Type (from [facility]): Peripheral IV Urinary Cath still in place: No Assessment/Plan Hospital Course SUBJECTIVE:no acute episodes. No DTs. Abdominal pain improved. No nausea or vomiting. Tolerating clear diet. OBJECTIVE: Vital signs-see below PHYSICAL EXAM: Constitutional: Adequately built,not in acute distress. HEENT: Head atraumatic and normocephalic. Eyes: Extraocular muscles intact. Anicteric sclerae. Pupils equal bilaterally, reactive to light. NECK: Supple without lymph node. CHEST: Clear and good breath sounds equally. No wheezing. No rhonchi. HEART: S1, S2. Regular rate and rhythm. ABDOMEN: RUQ/Lower abdominal pain. Soft/ with no rebound tenderness. Bowel sounds were present. EXTREMITIES: No cyanosis, clubbing or edema.No tremors. NEUROLOGIC: Alert and oriented x3. No focal deficit. No sensory deficit. PSYCHOSOCIAL: No signs of depression. INTEGUMENTARY: No open wounds. ASSESSMENT AND PLAN:38 yo M w/ EtOH abuse, advanced liver cirrhosis/portal hypertension/esophageal varices/TIPS placed, depressive disorders, homelessness, transferred from outside hospital with EtOH intoxication/DTs... EtOH intoxication/DTs -Resolving. -cont.IV banana bag, IV fluids, Librium/Ativan PRN-plan to switch to p.o. thiamine tomorrow. -Cessation advised -loft worker follow-up. Transaminitis elevation with hyperbilirubinemia secondary to advanced liver disease. -No evidence of choledocholithiasis. Cholelithiasis -Benign RUQ exam -Appreciate surgical follow-up and recommended no inpatient surgical intervention at this time. Can be monitored as outpatient. -Advance diet to regular Advanced liver cirrhosis/portal hypertension/esophageal varices/splenomegaly -Status post TIPS placed -Currently no hematemesis -on propranolol, Aldactone Thrombocytopenia, secondary to splenomegaly -Currently platelet stable at baseline. -monitor. Depressive disorders -cont home medications Nicotine abuse -Cessation advised. Nicotine patch Homelessness -loft worker consultation. DVT prophylaxis: SCDs PUD prophylaxis: PPI Dispo: Plan to transition to oral thiamine tomorrow. DC planning with detox center follow-up. loft worker to see patient today as he is also homeless. Patient is in collaboration with Dr. Boudreaux. Result Diagram: 02/01/19 0524 02/01/19 1125 Exam/Review of Systems Exam Vitals Vital Signs Date Temp Pulse Resp B/P (MAP) Pulse Ox O2 O2 Flow FiO2 Time Delivery Rate 02/02/19 97.9 72 12 109/72 99 08:00 (84) 02/01/19 Room Air 08:23 Intake and Output 02/01/19 02/01/19 02/02/19 1515:00 23:00 07:00 IntakeIntake Total 750 ml 1596.2 ml 500 ml OutputOutput Total 300 ml BalanceBalance 450 ml 1596.2 ml 500 ml Medications Medication Current Medications Lorazepam (Ativan) 1 mg Q10MIN PRN IV seizure; Start 01/31/19 at 09:30 Ondansetron HCl (Zofran Inj) 4 mg Q6H PRN IV NAUSEA/VOMITING Last administered on 01/31/19at 16:03; Admin Dose 4 MG; Start 01/31/19 at 09:30 Sodium Chloride 1,000 ml @ 125 mls/hr Q8H IV Last administered on 02/02/19at 00:03; Admin Dose 125 MLS/HR; Start 01/31/19 at 14:13 IV Flush (NS 3 ml) 3 ml PER PROTOCOL IV ; Start 01/31/19 at 14:30 Pantoprazole (Protonix Iv) 40 mg 0600,1800 IV Last administered on 02/02/19at 05:44; Admin Dose 40 MG; Start 01/31/19 at 18:00 Chlordiazepoxide (Librium) 75 mg TID PO Last administered on 02/02/19at 12:22; Admin Dose 75 MG; Start 01/31/19 at 21:00 Duloxetine HCl (Cymbalta) 60 mg DAILY PO Last administered on 02/02/19at 08:19; Admin Dose 60 MG; Start 01/31/19 at 14:30 Propranolol HCl (Inderal) 20 mg BID PO Last administered on 02/01/19at 21:00; Admin Dose 20 MG; Start 01/31/19 at 21:00 Spironolactone (Aldactone) 25 mg DAILY PO Last administered on 02/02/19at 08:31; Admin Dose 25 MG; Start 02/01/19 at 09:00 Sucralfate (Carafate Susp) 1 gm QID PO Last administered on 02/02/19at 12:23; Admin Dose 1 GM; Start 01/31/19 at 17:00 Multivitamins 10 ml/Thiamine HCl 100 mg/Folic Acid 1 mg/Sodium Chloride 1,011.2 ml @ 125 mls/ hr DAILY@09 IVPB Last administered on 02/02/19at 08:33; Admin Dose 125 MLS/HR; Start 02/01/19 at 09:00 Lorazepam (Ativan) 1 mg Q2H PRN IV agitation/withdrawl; Start 01/31/19 at 15:30 Morphine Sulfate (morphine) 1 mg Q4H PRN IV SEVERE PAIN LEVEL 7-10 Last administered on 02/02/19at 12:22; Admin Dose 1 MG; Start 01/31/19 at 15:30 Acetaminophen (Tylenol Tab) 325 mg Q6H PRN PO .PAIN 1-3 OR TEMP; Start 01/31/19 at 20:30 STEVE RODRIGUEZ NP Feb 02, 2019 12:49
[2019-02-02 14:00] VITALS: BP 95/61; PULSE 75; RESP 14
--- NOTE | 2019-02-02 14:20 | PN ---
Date/Time of Note Date/Time of Note DATE: 02/02/19 TIME: 14:17 Assessment/Plan Lines/Catheters IV Catheter Type (from [facility]): Peripheral IV López in Place (from [facility]): No Assessment/Plan Chief Complaint/Hosp Course 1. Cholelithiasis without evidence of cholecystitis, with concern for choledocholithiasis:; MRCP noted -No emergent surgical intervention necessary at this time. Can follow-up with dry box tender for liver cirrhosis management, elective cholecystectomy. 2.Alcoholic liver cirrhosis status post TIPS procedure -Will need hepatology follow-up 3. Pancytopenia: 2/2 Liver cirrhosis -Supportive 4. Alcohol abuse: Concern for detox -Medical management 5. Hyperbilirubinemia: -Trend -As above Thank you. Patient seen and examined in collaboration with Dr. Stevo Gage. Subjective 24 Hr Interval Summary MRCP noted. No fevers, chills, sob, congested cough, cp, palpitations, russell, dizziness, nausea, vomiting, diarrhea, dysuria. Some abdominal discomfort. Exam/Review of Systems Vital Signs Vitals Vital Signs Date Temp Pulse Resp B/P (MAP) Pulse Ox O2 O2 Flow FiO2 Time Delivery Rate 02/02/19 97.9 72 12 109/72 99 08:00 (84) 02/01/19 Room Air 08:23 Intake and Output 02/01/19 02/01/19 02/02/19 1515:00 23:00 07:00 IntakeIntake Total 750 ml 1596.2 ml 500 ml OutputOutput Total 300 ml BalanceBalance 450 ml 1596.2 ml 500 ml Exam Free Text/Dictation Constitutional: alert, oriented Psych: nl mood/affect; No anxiety Head: normocephalic, atraumatic Eyes: nl conjunctiva, EOMI, nl lids, nl sclera ENMT: nl external ears & nose, nl lips & teeth, mucosa pink and moist Neck: supple, non-tender; No jvd Respiratory: normal air movement; No congested cough Cardiovascular: regular rate and rhythm, nl pulses Gastrointestinal: soft, tender (Right upper quadrant, midepigastric; negative Serrano's by palpation); No distended Musculoskeletal: nl extremities to inspection, nl gait and stance Extremities: normal pulses Neurological: nl mental status, nl speech, nl strength Skin: nl turgor; No rash or lesions Results Result Diagram: 02/01/19 0524 02/01/19 1125 RICHARD CHUN NP Feb 02, 2019 14:20
--- NOTE | 2019-02-02 17:37 | PN ---
Date/Time of Note Date/Time of Note DATE: 02/02/19 TIME: 17:31 Assessment/Plan VTE Prophylaxis Risk score (from Nsg)>0 risk: 1 SCD applied (from Ns): Yes Pharmacological prophylaxis: NA/contraindicated Pharm contraindication: liver dx Lines/Catheters IV Catheter Type (from Nrs): Peripheral IV Urinary Cath still in place: No Assessment/Plan Assessment/Plan Assessment: Right upper quadrant pain associated with nausea and vomiting Cholelithiasis -Symptomatic versus acute cholecystitis Dilated common bile duct - R/o choledocholithiasis Indirect hyperbilirubinemia Alcoholic liver cirrhosis with sequela -Status post TIPS procedure March 2018 -Last EGD was April 2018- EV s/p banding Pancytopenia Hx of PUD Calledlast drink 3 to 4 days ago patient was in detox center Plan: Advance diet as tolerated Start Levsin MRCP is negative PPI/Carafate Patient seen in collaboration with Dr. Handy Subjective: Course reviewed with nursing staff Patient interviewed and examined All labs, imaging and other results reviewed The patient is doing well. He is tolerating regular diet well without nausea or vomiting. Complaining of upper abdominal pain radiating to the back. MRCP was negative for biliary duct obstruction. Shows portal hypertension, variances, cystitis and temps. Will order Levsin for symptomatic relief. Exam PHYSICAL EXAMINATION: GENERAL: Alert & oriented x 3, in no acute distress SKIN: No lesions HEAD: Normocephalic, atraumatic, no tenderness. EYES: Pupils equal reactive to light and accommodation, no discharge. EARS/NOSE AND THROAT: Ears normal NECK: Supple, no masses, CHEST: Inspection within normal limits. CARDIOVASCULAR: Heart: Regular rate and rhythm RESPIRATORY: Lungs clear to auscultation and percussion, no wheezing, no rubs GASTROINTESTINAL AND LIVER: Abdomen: Soft, upper abdominal tenderness, non- distended, no guarding, no rebound tenderness, normoactive bowel sounds. Rectal: Deferred. EXTREMITIES: No cyanosis, clubbing or edema. Result Diagram: 02/01/19 0524 02/01/19 1125 CC: TAMEKA HANDY MD ; Exam/Review of Systems Exam Vitals Vital Signs Date Temp Pulse Resp B/P (MAP) Pulse Ox O2 O2 Flow FiO2 Time Delivery Rate 02/02/19 97.8 75 14 95/61 (72) 99 14:00 02/01/19 Room Air 08:23 Intake and Output 02/01/19 02/01/19 02/02/19 1515:00 23:00 07:00 IntakeIntake Total 750 ml 1596.2 ml 500 ml OutputOutput Total 300 ml BalanceBalance 450 ml 1596.2 ml 500 ml Medications Medication Current Medications Lorazepam (Ativan) 1 mg Q10MIN PRN IV seizure; Start 01/31/19 at 09:30 Ondansetron HCl (Zofran Inj) 4 mg Q6H PRN IV NAUSEA/VOMITING Last administered on 01/31/19 16:03; Admin Dose 4 MG; Start 01/31/19 at 09:30 IV Flush (NS 3 ml) 3 ml PER PROTOCOL IV ; Start 01/31/19 at 14:30 Pantoprazole (Protonix Iv) 40 mg 0600,1800 IV Last administered on 02/02/19 05:44; Admin Dose 40 MG; Start 01/31/19 at 18:00 Duloxetine HCl (Cymbalta) 60 mg DAILY PO Last administered on 02/02/19 08:19; Admin Dose 60 MG; Start 01/31/19 at 14:30 Propranolol HCl (Inderal) 20 mg BID PO Last administered on 02/01/19 21:00; Adm in Dose 20 MG; Start 01/31/19 at 21:00 Spironolactone (Aldactone) 25 mg DAILY PO Last administered on 02/02/19 08:31; Admin Dose 25 MG; Start 02/01/19 at 09:00 Sucralfate (Carafate Susp) 1 gm QID PO Last administered on 02/02/19 16:49; Admin Dose 1 GM; Start 01/31/19 at 17:00 Multivitamins 10 ml/Thiamine HCl 100 mg/Folic Acid 1 mg/Sodium Chloride 1,011.2 ml @ 125 mls/ hr DAILY@09 IVPB Last administered on 02/02/19 08:33; Admin Dose 125 MLS/HR; Start 02/01/19 at 09:00 Lorazepam (Ativan) 1 mg Q2H PRN IV agitation/withdrawl; Start 01/31/19 at 15:30 Morphine Sulfate (morphine) 1 mg Q4H PRN IV SEVERE PAIN LEVEL 7-10 Last administered on 8/2/19at 16:45; Admin Dose 1 MG; Start 01/31/19 at 15:30 Acetaminophen (Tylenol Tab) 325 mg Q6H PRN PO .PAIN 1-3 OR TEMP; Start 01/31/19 at 20:30 Chlordiazepoxide (Librium) 50 mg TID PO ; Start 02/02/19 at 13:00 DARIO HESTER NP Feb 02, 2019 17:37
[2019-02-02] MEDS: ONDANSETRON 4 MG INJ IV PRN (18:06)
[2019-02-02] MEDS: HYOSCYAMINE 0.125 MG SUBL TAB PO SCH ×2 (19:04→21:36)
[2019-02-02 20:08] VITALS: BP 106/73; PULSE 64; RESP 18
[2019-02-03] MEDS: morphine 2 MG INJ IV PRN ×3 (01:34→13:00)
[2019-02-03 02:27] VITALS: BP 96/58; PULSE 62; RESP 20
[2019-02-03] MEDS: HYOSCYAMINE 0.125 MG SUBL TAB PO SCH ×2 (05:45→13:00)
[2019-02-03 08:06] VITALS: BP 107/74; PULSE 64; RESP 18
[2019-02-03] MEDS: SUCRALFATE (100 MG/ML) 10ML CUP PO SCH ×2 (08:39→12:12)
[2019-02-03] MEDS: DULOXETINE 30 MG CAP DR PO SCH (08:39)
[2019-02-03] MEDS: CHLORDIAZEPOXIDE 25 MG CAP PO SCH ×2 (08:39→12:12)
[2019-02-03] MEDS: SPIRONOLACTONE 25 MG TAB PO SCH (08:40)
[2019-02-03] MEDS: PROPRANOLOL 20 MG TAB PO SCH (08:40)
[2019-02-03] MEDS: MULTIVITAMINS 10 ML, THIAMINE 100 MG, FOLIC ACID 1 MG in SOD CHLORIDE 0.9% 1,000 ML IVPB SCH (08:58)
[2019-02-03] MEDS ORDERED: PANTOPRAZOLE (EC) 40 MG TAB PO SCH (09:00)
--- NOTE | 2019-02-03 09:53 | PDOCDIS ---
Discharge Instructions CONDITION [id number] Patient Condition: [id number] Stable HOME CARE INSTRUCTIONS: [id number] Diet Instructions: [id number] Regular FOLLOW UP/APPOINTMENTS Follow-up Plan Follow-up with primary care physician in 1 week. Follow-up with [facility]. 1.YOU HAVE RECEIVED A MEDICAL TREATMENT AT [facility] AND YOUR CONDITION IS STABLE AND CAN BE FOLLOWED UP OUTPATIENT. FURTHER FOLLOW-UPS CAN WAIT UNTIL YOU ARE SEEN IN YOUR DOCTORS OFFICE WITHIN THE NEXT 1-2 DAYS. IT IS YOUR RESPONSIBILITY TO MAKE AN APPOINTMENT FOR FOLOW-UP CARE. IF YOU HAVE A PRIMARY DOCTOR --you should call your primary doctor in 1-2 days and schedule an appointment IF YOU DO NOT HAVE A PRIMARY DOCTOR YOU CAN CALL OUR PHYSICIAN REFERRAL HOTLINE AT IF YOU CAN NOT AFFORD TO SEE A PHYSICIAN YOU CAN CHOSE FROM THE FOLLOWING [facility] [address] [facility] [address] [facility] [address] [facility] [address] [facility] [address] [facility]. [facility]. [address]. Call 911 or go to the nearest emergency room if experiencing loss of consciousness, dizziness, chest pain, shortness of breath, vomiting/abdominal pain, speech difficulties, motor weakness or any unusual symptoms. STEVE RODRIGUEZ NP Feb 03, 2019 09:53
--- NOTE | 2019-02-03 10:11 | DS ---
Date/Time of Note Date/Time of Note DATE: 02/03/19 TIME: 10:09 Discharge Summary Admission/Discharge Info Admit Date/Time Jan 31, 2019 at 07:18 Discharge Date/Time Discharge Diagnosis EtOH intoxication/DTs.stable Transaminitis elevation with hyperbilirubinemia secondary to advanced liver disease. Asymptomatic Cholelithiasis Advanced liver cirrhosis/portal hypertension/esophageal varices/splenomegaly -Status post TIPS placed Thrombocytopenia, secondary to splenomegaly Depressive disorders Nicotine abuse Homelessness Patient Condition: Stable Consults dr.suchov price Procedures 02/01/2019: MRCP: IMPRESSION: No evidence of biliary duct obstruction. Cholelithiasis without gallbladder wall thickening. Cirrhotic appearance of the liver with probable TIPS. Recommend TIPS ultrasound to evaluate patency. Evidence of portal hypertension with massive splenomegaly, varices and ascites. Hx of Present Illness This is a 38-year-old homeless male with a history of alcoholism, nicotine abuse, advanced alcoholic liver cirrhosis with portal hypertension/esophageal varices, status post TIPS, EGD with esophageal variceal ligation, cholelithiasis, depressive disorders, initially presented to [facility] with intractable nausea with nonbilious/nonbloody vomiting. Apparently, patient has been in 4 days of alcohol detoxification. He was also having generalized abdominal pain. He denied diarrhea, fevers, chills, constipation, hematemesis, hematochezia, melena, chest pain, palpitation, shortness of breath, numbness, tingling, dizziness, loss of consciousness or other constitutional symptoms. Initial vital signs stable. Outside hospital medical record shows unremarkable UA. CBC with white count 5300, hemoglobin 14.5, hematocrit 42.5, platelet 88,000, INR 1.4, PT 15.7, PTT 42 seconds, sodium 139, potassium 4.5, chloride 109, BUN 6, creatinine 1.05, total bilirubin 1.6, direct bilirubin 0.5, ALT 34, AST 41, alkaline phosphatase 74, lipase 293. Abdominal ultrasound showed cirrhotic liver with a transjugular intrahepatic portosystemic shunt, cholelithiasis with mild dilated common bile duct, right renal cyst with multiple nonobstructing right renal calculi. A CT abdomen and pelvis with IV contrast showed cirrhotic liver, patent TIPS, gallstones in the gallbladder, no evidence of cholecystitis, market splenomegaly, dilated veins in the splenic hilum region consistent with portal hypertension, benign right renal cyst, normal appendix, otherwise unremarkable contrast-enhanced CT scan of the abdomen and pelvis. Outside hospital emergency room course: Normal saline bolus, Pepcid IV, Reglan IV, Hospital Course 38 yo M w/ EtOH abuse, advanced liver cirrhosis/portal hypertension/esophageal varices/TIPS placed, depressive disorders, homelessness, transferred from outside hospital with EtOH intoxication/DTs... Patient was treated with IV banana bag, fluids, Librium/Ativan. Patient did well. There was no further tremors or altered mental status. Patient was counseled on EtOH cessation. He was being followed by our director social welfare. Hospitalization was also noted for transaminitis with hyperbilirubinemia for which patient had extensive work-up including MRCP negative for choledochol ithiasis. Patient did have cholelithiasis but he is with benign RUQ exam. He was being followed by GI and surgical consults and no emergent surgical recommendation recommended and can be followed up as outpatient. Patient is tolerating diet and activities well. He did not have any further abdominal pain. Patient was continued on home medication for underlying advanced liver cirrhosis with portal hypertension, esophageal varices and splenomegaly. Patient also has a TIPS placed with no malfunctioning symptoms noted clinically. He was maintained on propranolol and Aldactone. Patient was also noted with thrombocytopenia secondary to splenomegaly for which his platelet remained stable at baseline. He was continued on home medication for underlying depres sive disorders. He was counseled on cessation of smoking. At this time, patient is medically stable to go back to detox center. Patient was accepted to a recuperative center where he can followed up with the detox center. Patient verbalized instructions. Next Approximately 60-minute was spent on coordinating the discharge on this patient. Patient was seen in collaboration with [facility] Active Scripts Hyoscyamine Sulfate* (Hyoscyamine Sulfate*) 0.125 Mg Tab.subl, 0.125 MG PO Q8, #30 TAB Prov:RODRIGUEZPRANAYA V. WRAPPER LEAF INSPECTOR 02/03/19 Duloxetine Hcl* (Cymbalta*) 30 Mg Capsule., 60 MG PO DAILY, #60 TAB Prov:RODRIGUEZ,STEVE V. WRAPPER LEAF INSPECTOR 02/03/19 Pantoprazole* (Pantoprazole*) 40 Mg Tablet., 40 MG PO BID, #60 TAB Prov:RODRIGUEZPRANAYA V. WRAPPER LEAF INSPECTOR 02/03/19 Sucralfate* (Carafate*) 1 Gm/10 Ml Susp, 1 GM PO QID, #30 DOSE Prov:STEVE RODRIGUEZ V. WRAPPER LEAF INSPECTOR 02/03/19 Thiamine* (Thiamine*) 50 Mg Tablet, 100 MG PO DAILY, #30 TAB Prov:STEVE RODRIGUEZ V. WRAPPER LEAF INSPECTOR 02/03/19 Reported Medications Omeprazole* (Omeprazole*) 40 Mg Capsule.dr, 40 MG PO DAILY, #30 CAP 01/31/19 Escitalopram Oxalate* (Lexapro*) 20 Mg Tablet, 20 MG PO DAILY, #30 TAB 01/31/19 Propranolol Hcl* (Propranolol Hcl*) 20 Mg Tablet, 20 MG PO BID, TAB 01/31/19 Spironolactone* (Aldactone*) 25 Mg Tablet, 25 MG PO DAILY, #30 TAB 01/31/19 Follow-up Plan Follow-up with primary care physician in 1 week. Follow-up with [facility]. 1.YOU HAVE RECEIVED A MEDICAL TREATMENT AT [facility] AND YOUR CONDITION IS STABLE AND CAN BE FOLLOWED UP OUTPATIENT. FURTHER FOLLOW-UPS CAN WAIT UNTIL YOU ARE SEEN IN YOUR DOCTORS OFFICE WITHIN THE NEXT 1-2 DAYS. IT IS YOUR RESPONSIBILITY TO MAKE AN APPOINTMENT FOR FOLOW-UP CARE. IF YOU HAVE A PRIMARY DOCTOR --you should call your primary doctor in 1-2 days and schedule an appointment IF YOU DO NOT HAVE A PRIMARY DOCTOR YOU CAN CALL OUR PHYSICIAN REFERRAL HOTLINE AT IF YOU CAN NOT AFFORD TO SEE A PHYSICIAN YOU CAN CHOSE FROM THE FOLLOWING [facility] [address] [facility] [address] [facility] [facility] [address] [facility] [address] [facility] [address] [facility]. [facility]. [address]. Call 911 or go to the nearest emergency room if experiencing loss of consciousness, dizziness, chest pain, shortness of breath, vomiting/abdominal pain, speech difficulties, motor weakness or any unusual symptoms. Primary Care Provider Not On Staff Doctor STEVE RODRIGUEZ NP Feb 03, 2019 10:11
[2019-02-03 14:00] VITALS: BP 111/75; PULSE 67; RESP 18
--- NOTE | 2019-02-03 23:59 | PN ---
Date/Time of Note Date/Time of Note DATE: 02/03/19 TIME: 23:59 Assessment/Plan Lines/Catheters IV Catheter Type (from [facility]): Peripheral IV López in Place (from [facility]): No Assessment/Plan Chief Complaint/Hosp Course 1. Cholelithiasis without evidence of cholecystitis, with concern for choledocholithiasis; MRCP noted -No emergent surgical intervention necessary at this time. Can follow-up with acetylene cutter for liver cirrhosis management, elective cholecystectomy. 2.Alcoholic liver cirrhosis status post TIPS procedure -Will need hepatology follow-up 3. Pancytopenia: 2/2 Liver cirrhosis -Supportive 4. Alcohol abuse: Concern for detox -Medical management 5. Hyperbilirubinemia: -Trend -As above Thank you Late entry 02/03 Subjective 24 Hr Interval Summary No fevers, chills, sob, congested cough, cp, palpitations, russell, dizziness, nausea, vomiting, diarrhea, dysuria. Pain improved. Bowel function. Exam/Review of Systems Vital Signs Vitals Vital Signs Date Temp Pulse Resp B/P (MAP) Pulse Ox O2 O2 Flow FiO2 Time Delivery Rate 02/03/19 98.5 67 18 111/75 97 Room Air 14:00 (87) Intake and Output 02/02/19 02/02/19 02/03/19 1515:00 23:00 07:00 IntakeIntake Total 3040 ml 1805 ml 550 ml OutputOutput Total 20 ml BalanceBalance 3040 ml 1785 ml 550 ml Exam Free Text/Dictation Constitutional: alert, oriented Psych: nl mood/affect; No anxiety Head: normocephalic, atraumatic Eyes: nl conjunctiva, EOMI, nl lids, nl sclera ENMT: nl external ears & nose, nl lips & teeth, mucosa pink and moist Neck: supple, non-tender; No jvd Respiratory: normal air movement; No congested cough Cardiovascular: regular rate and rhythm, nl pulses Gastrointestinal: soft, tender (Right upper quadrant, midepigastric; negative Serrano's by palpation); No distended Musculoskeletal: nl extremities to inspection, nl gait and stance Extremities: normal pulses Neurological: nl mental status, nl speech, nl strength Skin: nl turgor; No rash or lesions Results Result Diagram: 02/01/19 0524 02/01/19 1125 REINA LOCO MD Feb 03, 2019 23:59
== END 2019-02-03 15:05 | disposition home or self-care (01) | DRG 897 ==
LOC: PP2 07:18
PROVIDERS: ADMIT Internal Medicine; ATTEND Internal Medicine
DX: F10.121 Alcohol abuse with intoxication delirium (principal); D61.818 Other pancytopenia; K76.6 Portal hypertension; I85.10 Secondary esophageal varices without bleeding; K70.30 Alcoholic cirrhosis of liver without ascites; Z59.0 Homelessness; K80.20 Calculus of gallbladder without cholecystitis without obstruction; E80.6 Other disorders of bilirubin metabolism; F32.9 Major depressive disorder, single episode, unspecified; R16.1 Splenomegaly, not elsewhere classified; Z72.0 Tobacco use
CPT/HCPCS: 74181; 80053; 82140; 83690; 83735; 84100; 85025; 85610; 86704; 86803; 87081; 87340; C9113; J2270; J2405; J2765; J3411; J3475; J7030